=== PATIENT | male | born 1980 | race African-American/Black ===

== ENCOUNTER 2018-06-30 09:42 | Emergency (ER) | payer BC ==
[2018-06-30 09:51] VITALS: BP 116/74; PULSE 84; TEMP 98.8; BMI 23.1
--- NOTE | 2018-06-30 10:22 | PDOC ---
*Physical Exam - Vital Signs Last Vital Signs Temp Pulse Resp BP Pulse Ox 98.8 F 84 18 116/74 99 06/30/18 09:46 06/30/18 09:46 06/30/18 09:46 06/30/18 09:46 06/30/18 09:46 Medical Decision Making - Medical Decision Making 06/30/18 10:22 Pt seen by Midlevel Provider under my direct supervision Pt interviewed and examined Ancillary studies reviewed I agree with plan as outlined by Midlevel Provider
--- NOTE | 2018-06-30 11:08 | PDOC ---
History of Present Illness - General Chief Complaint: Pain Stated Complaint: CHEST PAIN Time Seen by Provider: 06/30/18 10:02 History Source: Patient Exam Limitations: No Limitations - History of Present Illness Travel History: No Initial Comments: 06/30/18 11:31 37-year-old male with no past medical history presenting with complaints of left chest wall tightness intermittently for the past 2 weeks without aggravating or alleviating factors. Patient also complaining of right upper quadrant cramping without nausea vomiting fever, chills, change in bowel pattern change in urine pattern. Patient states loss approximate 5 pounds in the past 4 weeks but denies change in activity pattern. Timing/Duration: reports: intermittent Quality: reports: mild, cramping, sharpness Abdominal Pain Onset Location: reports: RUQ, epigastric Pain Radiation: reports: chest Activities at Onset: reports: none Aggravating Factors: improves with: None Alleviating Factors: improves with: None Past History - Travel Traveled outside of the country in the last 30 days: No - Past Medical History Allergies/Adverse Reactions: Allergies Allergy/AdvReac Type Severity Reaction Status Date / Time No Known Allergies Allergy Verified 06/30/18 09:46 COPD: No - Immunization History Immunization Up to Date: No - Suicide/Smoking/Psychosocial Hx Smoking History: Current every day smoker Number of Cigarettes Smoked Daily: 7 Information on smoking cessation initiated: No Hx Alcohol Use: No Drug/Substance Use Hx: No Patient Lives Alone: No Lives with/in: spouse/SO Review of Systems - Review of Systems Able to Perform ROS?: No Constitutional: Yes: Unintentional Wgt. Loss HEENTM: No: Symptoms Reported Respiratory: No: Symptoms reported Cardiac (ROS): Yes: Chest Pain ABD/GI: Yes: Abdominal cramping. No: Constipated, Diarrhea, Poor Appetite, Poor Fluid Intake, Vomiting, Indigestion : No: Symptoms Reported Musculoskeletal: No: Symptoms Reported Integumentary: No: Symptoms Reported Neurological: No: Symptoms reported Hematologic/Lymphatic: No: Symptoms Reported *Physical Exam - Vital Signs Last Vital Signs Temp Pulse Resp BP Pulse Ox 98.8 F 84 18 116/74 99 06/30/18 09:46 06/30/18 09:46 06/30/18 09:46 06/30/18 09:46 06/30/18 09:46 - Physical Exam General Appearance: Yes: Nourished, Appropriately Dressed. No: Apparent Distress HEENT: positive: EOMI, IAN, TMs Normal, Pharynx Normal. negative: Pale Conjunctivae Neck: positive: Supple Respiratory/Chest: positive: Lungs Clear, Normal Breath Sounds. negative: Respiratory Distress, Accessory Muscle Use Cardiovascular: positive: Regular Rhythm, Regular Rate. negative: Murmur Gastrointestinal/Abdominal: positive: Normal Bowel Sounds, Soft. negative: Distended, Guarding, Rebound, Tenderness, Hernia, Mass Musculoskeletal: negative: CVA Tenderness Integumentary: positive: Normal Color, Warm, Moist Neurologic: positive: Motor Strength 5/5 (ambulatory) Moderate Sedation - Procedure Monitoring Vital Signs: Procedure Monitoring Vital Signs Temperature 98.8 F 06/30/18 09:46 Pulse Rate 84 06/30/18 09:46 Respiratory Rate 18 06/30/18 09:46 Blood Pressure 116/74 06/30/18 09:46 O2 Sat by Pulse Oximetry (%) 99 06/30/18 09:46 Heart Score/ECG Review - ECG Intrepretation Rhythm: Regular Rhythm (rate 71 normal sinus) ED Treatment Course - LABORATORY CBC & Chemistry Diagram: 06/30/18 11:10 06/30/18 11:10 Medical Decision Making - Medical Decision Making 06/30/18 11:35 Chief complaint: Intermittent left-sided chest pain epigastric and right upper quadrant pain for the past 2-3 weeks without aggravating alleviating factors. Patient has no GI history cardiac history or complaints of shortness of breath fever chills. Exam: No acute findings. EKG NSR, vital signs stable Plan: Labs, EKG 06/30/18 12:52 A shows no acute chest pathology. Degenerative changes with wedging. Adhesion to the left base. Patient will be recommended to follow-up with his PCP *DC/Admit/Observation/Transfer Diagnosis at time of Disposition: Upper abdominal pain - Discharge Dispostion Disposition: HOME Condition at time of disposition: Good - Referrals - Patient Instructions Printed Discharge Instructions: DI for Abdominal Pain-Adult Additional Instructions: Please follow-up with your primary care physician and or a specialist field engineer due to complaints of diet and weight loss. 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
[2018-06-30 11:21] LABS: BASO % 0.6 % (0-2.0); EOS % 1.4 % (0-4.5); HEMATOCRIT 45.7 % (35.4-49); HEMOGLOBIN 14.6 GM/dL (11.7-16.9); LYMPH % 30.2 % (8-40); MEAN CELL VOLUME 87.6 fl (80-96); MEAN PLT VOLUME 10.1 fl (7.5-11.1); MONO % 5.9 % (3.8-10.2); NEUT % 61.9 % (42.8-82.8); PLATELET COUNT 227 K/MM3 (134-434); RBC 5.21 M/mm3 (4.00-5.60); RDW 12.8 % (11.9-15.9); WHITE BLOOD COUNT 10.2 K/mm3 (4.0-10.0)
[2018-06-30 11:54] LABS: ALBUMIN 4.2 g/dl (3.4-5.0); ALK PHOS 69 U/L (45-117); ANION GAP 6 MMOL/L (8-16); BILIRUBIN,TOTAL 0.6 mg/dL (0.2-1); BLOOD UREA NITROGEN 13 mg/dL (7-18); CHLORIDE 105 mmol/L (98-107); CO2 27 mmol/L (21-32); GLUCOSE,RANDOM 93 mg/dL (74-106); LIPASE 226 U/L (73-393); POTASSIUM 4.3 mmol/L (3.5-5.1); SGOT/AST 17 U/L (15-37); SGPT/ALT 22 U/L (13-61); SODIUM 138 mmol/L (136-145); TOT PROT 7.4 g/dl (6.4-8.2)
--- NOTE | 2018-07-01 16:57 | EKG ---
Test Reason : Blood Pressure : / mmHG Vent. Rate : 071 BPM Atrial Rate : 071 BPM P-R Int : 156 ms QRS Dur : 080 ms QT Int : 342 ms P-R-T Axes : 068 023 052 degrees QTc Int : 371 ms NORMAL SINUS RHYTHM WITH SINUS ARRHYTHMIA LEFT VENTRICULAR HYPERTROPHY ABNORMAL ECG Confirmed by MD KYLAH, RITA ([id number]) on 07/01/2018 4:56:52 PM Referred By: Confirmed By:RITA MONTERO MD
== END 2018-06-30 13:09 | disposition home or self-care (01) ==
LOC: JER 09:42
DX: R10.10 Upper abdominal pain, unspecified (principal)
CPT/HCPCS: 36415; 71046-TC-FY; 80053; 82550; 82553; 83690; 84484; 85025; 93005; 93010; 99282-25